=== PATIENT | male | born 1980 | race Caucasian/White ===

== ENCOUNTER 2021-08-01 09:19 | Emergency (ER) | payer OTHER ==
[~2021-08-01 09:19] MED LIST: KEFLEX250 MG PO; NORCO 5-325 TA1 EACH PO
[2021-08-01 12:20] LABS: BASOPHIL 0.4 % (0-2); EOSINOPHIL 1.9 % (0-5); HCT 43.5 % (42.0-52.0); LYMPHOCYTE 41.5 % (15-48); MCH 31.5 pg (25.0-31.0); MCHC 34.5 g/dL (32.0-36.0); MCV 91.4 fL (78.0-100.0); MONOCYTE 7.2 % (0-12); MPV 9.7 fL (6.0-9.5); NEUTROPHIL 48.9 % (41-80); NRBC 0; PLT 204 K/uL (150-400); RBC 4.76 M/uL (4.70-6.00); RDW 11.9 % (11.5-14.0); WBC 8.1 K/uL (4.0-10.5)
[2021-08-01 12:44] LABS: ALBUMIN 4.2 g/dL (3.4-5.0); BUN/CREAT RATIO (CALC) 14.8 RATIO; CREATININE 0.88 mg/dL (0.67-1.17); GLOBULIN (CALCULATION) 3.1 g/dL; POTASSIUM 4.3 mmol/L (3.5-5.1); TOTAL PROTEIN 7.3 g/dL (6.4-8.2)
[2021-08-01] MEDS ORDERED: PERCOCET 5-3251 EACH PO (15:04)
== END 2021-08-01 15:21 | disposition home or self-care (01) ==
LOC: FER 09:19
PROVIDERS: Internal Medicine
DX: M25.511 Pain in right shoulder (principal)
CPT/HCPCS: 36415; 71275; 73030; 73200; 80053; 85025; 96372; J1170; J2930; Q9967